=== PATIENT | female | born 1955 | race American Indian/Alaskan Native ===

== ENCOUNTER 2016-11-11 12:19 | Outpatient (CLI) | payer MEDICAID ==
--- NOTE | 2016-11-11 13:36 | Mammography Report ---
Bilateral mammogram: No previous studies available. CAD study utilized. Findings: Predominance of adipose tissue bilaterally. No mass or microcalcification. Normal axilla. Impression: Benign findings. Annual followup recommended.
== END 2016-11-11 12:20 | disposition home or self-care (01) ==
LOC: MAMMO 12:19
PROVIDERS: ATTEND Obstetrics & Gynecology
DX: Z12.31 Encounter for screening mammogram for malignant neoplasm of breast (principal); I11.0 Hypertensive heart disease with heart failure; I50.9 Heart failure, unspecified; I25.10 Atherosclerotic heart disease of native coronary artery without angina pectoris; J44.9 Chronic obstructive pulmonary disease, unspecified; J45.909 Unspecified asthma, uncomplicated; E11.9 Type 2 diabetes mellitus without complications
CPT/HCPCS: 77067; G0202

== ENCOUNTER 2017-04-09 04:28 | Emergency (ER) | payer MEDICAID ==
--- NOTE | 2017-04-09 06:12 | Cat Scan Report ---
FINAL REPORT PROCEDURE: CT HEAD/BRAIN WO CON TECHNIQUE: Computerized tomography of the head was performed without contrast material. HISTORY: fall COMPARISON: No prior studies are available for comparison. FINDINGS: Skull and scalp: Normal. Paranasal sinuses: Normal. Ventricles and subarachnoid spaces: Normal. Cerebrum: No evidence of hemorrhage, acute infarction or mass . Cerebellum and brainstem: No evidence of hemorrhage, acute infarction or mass. Vasculature: Normal. Comments: None. IMPRESSION: There is no skull fracture. There is no intracranial hemorrhage.
--- NOTE | 2017-04-09 07:53 | Cat Scan Report ---
FINAL REPORT PROCEDURE: CT CERVICAL SPINE WO CON TECHNIQUE: Computerized tomography of the cervical spine was performed from the skull base to T1 without contrast material. HISTORY: haedache s/p fall COMPARISON: No prior studies are available for comparison. FINDINGS: The skull base and foramen magnum are intact. The cervical vertebrae are intact. C1-2: No significant abnormality. C2-3: No significant abnormality. C3-4: No significant abnormality. C4-5: No significant abnormality. C5-6: No significant abnormality. C6-7: No significant abnormality. C7-T1: No significant abnormality. Other: There are no fractures or malalignments. The prevertebral soft tissues are normal in thickness. There is enlargement of the thyroid gland.. IMPRESSION: No significant abnormality.
--- NOTE | 2017-04-09 08:13 | Cat Scan Report ---
FINAL REPORT EXAM: CT FACIAL BONES WO CON HISTORY: haedache s/p fall TECHNIQUE: CT images are acquired through the face without contrast. Transaxial , coronal and sagittal reformations are provided. PRIORS: None. FINDINGS: No facial fractures. The bony orbits, nasal bones, pterygoid plates, mandible and maxilla are intact. Suggested right para midline lower lip swelling. Normal spherical shape of the globes. No significant abnormality within the imaged paranasal sinuses or mastoid air cells. IMPRESSION: No facial fracture.
[2017-04-09] MEDS ORDERED: ULTRAM PO ONE (08:16)
[2017-04-09] MEDS ORDERED: ULTRAM ONE (08:25)
--- NOTE | 2017-04-09 08:44 | Emergency Department Report ---
ED Fall HPI - General Chief Complaint: Fall Stated Complaint: FALL Time Seen by Provider: 04/09/17 07:13 Source: patient Mode of arrival: Ambulatory - History of Present Illness Initial Comments: This is a 61-year-old female nontoxic, well nourished in appearance, no acute signs of distress presents to the ED with c/o of headache and right-sided mandible pain status post fall that occurred today. Patient stated she was with a cane walking about the room and tripped and hit her face against the floor of the right side and her head against the tub. Patient denies any loss of consciousness. Denies any back pain, chest pain, shortness of breath, fever , chills, nausea, vomiting, numbness, tingling, abdominal pain. Patient denies any blurry vision. Denies thunderclap headache. Describes headache as diffuse but level of 8 out of 10. Patient states allergies to all penicillins. Past medical history includes CVA, COPD, asthma, diabetes, GERD, headaches, hypertension and [place]. MD Complaint: fall -: This morning Fall From: standing Fall Witnessed: no Place Fall Occurred: home Loss of Consciousness: none Prolonged Down Time?: no Symptoms Prior to Fall: none Location: head, face Severity: mild Severity scale (0 -10): 8 Quality: aching Context: tripped/slipped Associated Symptoms: headache. denies: neck pain, numbness, weakness, chest paint, shortness of breath, abdominal pain, hematuria, unable to walk, lightheaded, vertigo, confusion - Related Data Home Medications Medication Instructions Recorded Confirmed Last Taken diphenhydrAMINE [Benadryl CAP] 50 mg PO Q8HR PRN 10/14/13 04/09/17 12/11/14 Atorvastatin [Lipitor] 40 mg PO QHS 06/23/14 04/09/17 1 Day Ago ~04/08/17 Gabapentin 300 mg PO TID 06/23/14 04/09/17 1 Day Ago ~04/08/17 Hydrochlorothiazide 25 mg PO DAILY 06/23/14 04/09/17 1 Day Ago ~04/08/17 Metoprolol [Lopressor TAB] 25 mg PO DAILY 06/23/14 04/09/17 1 Day Ago ~04/08/17 amLODIPine [Norvasc] 10 mg PO DAILY 06/23/14 04/09/17 1 Day Ago ~04/08/17 Keppra TAB 1,500 mg PO BID 12/08/14 04/09/17 1 Day Ago ~04/08/17 Furosemide [Lasix] 20 mg PO DAILY 04/09/17 04/09/17 1 Day Ago ~04/08/17 Hydroxyzine HCl [hydrOXYzine] 50 mg PO DAILY 04/09/17 04/09/17 1 Day Ago ~04/08/17 Lacosamide [Vimpat] 200 mg PO BID 04/09/17 04/09/17 1 Day Ago ~04/08/17 Previous Rx's Medication Instructions Recorded Last Taken Type ALBUTEROL Inhaler [ProAir HFA 2 puff IH QID PRN #20 inha 07/21/13 12/11/14 Rx Inhaler] Ferrous Sulfate [Feosol 325 MG tab] 325 mg PO BID #60 tablet 07/21/13 12/11/14 Rx Aspirin [Aspirin BABY CHEW TAB] 81 mg PO QDAY #30 tab.chew 06/23/14 1 Day Ago Rx ~04/08/17 Cyclobenzaprine [Flexeril 10 MG 10 mg PO TID PRN #30 tablet 06/23/14 12/11/14 Rx TAB] Nitroglycerin [Nitrostat] 0.4 mg SL Q5M PRN #14 tab 06/23/14 10/24/14 Rx Omeprazole [PriLOSEC] 20 mg PO BID #20 capsule. 12/12/14 1 Day Ago Rx ~04/08/17 Butalb/Acetamin/Caff 50-325-40 1 tab PO Q6HR PRN #10 tab 04/09/17 Unknown Rx [Fioricet] Allergies Allergy/AdvReac Type Severity Reaction Status Date / Time Penicillins Allergy Hives Verified 12/08/14 16:06 "cillins Allergy Hives Uncoded 07/19/13 17:49 ED Review of Systems ROS: Stated complaint: FALL Other details as noted in HPI Constitutional: denies: chills, fever Eyes: denies: eye pain, eye discharge, vision change ENT: denies: ear pain, throat pain Respiratory: denies: cough, shortness of breath, wheezing Cardiovascular: denies: chest pain, palpitations Endocrine: no symptoms reported Gastrointestinal: denies: abdominal pain, nausea, diarrhea Genitourinary: denies: urgency, dysuria, discharge Musculoskeletal: denies: back pain, joint swelling, arthralgia Skin: denies: rash, lesions Neurological: headache. denies: weakness, paresthesias Psychiatric: denies: anxiety, depression Hematological/Lymphatic: denies: easy bleeding, easy bruising ED Past Medical Hx - Past Medical History Previous Medical History?: Yes Hx Hypertension: Yes Hx CVA: Yes Hx Heart Attack/AMI: Yes (2008) Hx Congestive Heart Failure: No Hx Diabetes: Yes (NO LONGER TAKES MEDS) Hx GERD: Yes Hx Headaches / Migraines: Yes Hx Seizures: Yes (SINCE CHILDHOOD LAST SZ WAS 2 WEEKS AGO) Hx Asthma: Yes Hx COPD: Yes Hx HIV: No Additional medical history: back pain, CAD, Headache,STOMACH ULCER - Surgical History Past Surgical History?: Yes Additional Surgical History: Hysterectomy, gastric cancer Tumor removed from stomach, fallopian tube surgery, cyst on neck - Social History Smoking Status: Never Smoker Substance Use Type: None - Medications Home Medications: Home Medications Medication Instructions Recorded Confirmed Last Taken Type ALBUTEROL Inhaler [ProAir HFA 2 puff IH QID PRN #20 inha 07/21/13 04/09/1712/11 Rx Inhaler] Ferrous Sulfate [Feosol 325 MG tab] 325 mg PO BID #60 tablet 07/21/13 04/09/17 12/11/14 Rx diphenhydrAMINE [Benadryl CAP] 50 mg PO Q8HR PRN 10/14/13 04/09/17 12/11/14 History Aspirin [Aspirin BABY CHEW TAB] 81 mg PO QDAY #30 tab.chew 06/23/14 04/09/17 1 Day Ago Rx ~04/08/17 Atorvastatin [Lipitor] 40 mg PO QHS 06/23/14 04/09/17 1 Day Ago History ~04/08/17 Cyclobenzaprine [Flexeril 10 MG 10 mg PO TID PRN #30 tablet 06/23/14 04/09/17 Rx TAB] Gabapentin 300 mg PO TID 06/23/14 04/09/17 1 Day Ago History ~04/08/17 Hydrochlorothiazide 25 mg PO DAILY 06/23/14 04/09/17 1 Day Ago History ~04/08/17 Metoprolol [Lopressor TAB] 25 mg PO DAILY 06/23/14 04/09/17 1 Day Ago History ~04/08/17 Nitroglycerin [Nitrostat] 0.4 mg SL Q5M PRN #14 tab 06/23/14 04/09/17 10/24/14 Rx amLODIPine [Norvasc] 10 mg PO DAILY 06/23/14 04/09/17 1 Day Ago History ~04/08/17 Keppra TAB 1,500 mg PO BID 12/08/14 04/09/17 1 Day Ago History ~04/08/17 Omeprazole [PriLOSEC] 20 mg PO BID #20 capsule.dr 12/12/14 04/09/17 1 Day Ago Rx ~04/08/17 Butalb/Acetamin/Caff 50-325-40 1 tab PO Q6HR PRN #10 tab 04/09/17 Unknown Rx [Fioricet] Furosemide [Lasix] 20 mg PO DAILY 04/09/17 04/09/17 1 Day Ago History ~04/08/17 Hydroxyzine HCl [hydrOXYzine] 50 mg PO DAILY 04/09/17 04/09/17 1 Day Ago History ~04/08/17 Lacosamide [Vimpat] 200 mg PO BID 04/09/17 04/09/17 1 Day Ago History ~04/08/17 ED Physical Exam - General Limitations: No Limitations General appearance: alert, in no apparent distress - Head Head exam: Present: atraumatic, normocephalic, normal inspection - Expanded Head Exam Expanded Head exam: Present: other (right cheek bone slight redness. No trismus. ). Absent: laceration, abrasion, hematoma 1 - redness - Eye Eye exam: Present: normal appearance, PERRL, EOMI. Absent: scleral icterus, conjunctival injection, nystagmus, periorbital swelling, periorbital tenderness Pupils: Present: normal accommodation - ENT ENT exam: Present: normal exam, normal orophraynx, mucous membranes moist, TM's normal bilaterally, normal external ear exam - Neck Neck exam: Present: normal inspection, full ROM. Absent: tenderness, meningismus, lymphadenopathy, thyromegaly - Respiratory Respiratory exam: Present: normal lung sounds bilaterally. Absent: respiratory distress, wheezes, rales, rhonchi, stridor, chest wall tenderness, accessory muscle use, decreased breath sounds, prolonged expiratory - Cardiovascular Cardiovascular Exam: Present: regular rate, normal rhythm, normal heart sounds. Absent: irregular rhythm, systolic murmur, diastolic murmur, rubs, gallop - GI/Abdominal GI/Abdominal exam: Present: soft, normal bowel sounds. Absent: distended, tenderness, guarding, rebound, rigid, diminished bowel sounds - Rectal Rectal exam: Present: deferred - Extremities Exam Extremities exam: Present: normal inspection, full ROM, normal capillary refill. Absent: tenderness, pedal edema, joint swelling, calf tenderness - Back Exam Back exam: Present: normal inspection, full ROM. Absent: tenderness, CVA tenderness (R), CVA tenderness (L), muscle spasm, paraspinal tenderness, vertebral tenderness, rash noted - Expanded Back Exam Expanded Back exam: Absent: saddle anesthesia Back exam: Negative Straight Leg Raising: Left, Right - Neurological Exam Neurological exam: Present: alert, oriented X3, CN II-XII intact, normal gait, reflexes normal - Expanded Neurological Exam Expanded Patient oriented to: Present: person, place, time Cranial nerves: EOM's Intact: Normal, Gag Reflex: Normal, Tongue Deviation: Normal, Nystagmus: Normal, Facial Sensation: Normal, Facial Palsy with Forehead Movement: Normal, Facial Palsy without Forehead Movement: Normal Cerebellar function: Finger to Nose: Normal, Heel to Senior: Normal, Romberg: Normal Upper motor neuron: Yaw Neglect: Normal, Pronator Drift: Normal, Babinski Sign : Normal, Sensory Extinction: Normal Sensory exam: Upper Extremity Light Touch: Normal, Upper Extremity Pin Prick: Normal, Upper Extremity Temperature: Normal, UE 2 Point Discrimination: Normal, Lower Extremity Light Touch: Normal, Lower Extremity Pin Prick: Normal, Lower Extremity Temperature: Normal, LE 2 Point Discrimination: Normal Motor strength exam: RUE: 3, LUE: 3, RLE: 3, LLE: 3 DTR: bicep (R): 2+, bicep (L): 2+, tricep (R): 2+, tricep (L): 2+, knee (R): 2+ , knee (L): 2+, ankle (R): 2+, ankle (L): 2+ Best Eye Response ([place]): (4) open spontaneously Best Motor Response ([place]): (6) obeys commands Best Verbal Response ([place]): (5) oriented Mallorie Total: 15 - Psychiatric Psychiatric exam: Present: normal affect, normal mood - Skin Skin exam: Present: warm, dry, intact, normal color. Absent: rash ED Course Vital Signs 04/09/17 04/09/17 05:05 08:26 Temperature 97.4 F L Pulse Rate 88 Respiratory 17 18 Rate Blood Pressure 106/56 O2 Sat by Pulse 99 Oximetry - Reevaluation(s) Reevaluation #1: 04/09/17 08:46 Patient is speaking in full sentences with no signs of distress noted. ED Medical Decision Making - Medical Decision Making This is a 61-year-old female Headache and contusion. Patient is stable and was examined by me. CT of head/brain, cervical spine, and facial bones has been obtained and dictated by radiologist within normal limits. Patient is notified of CT results with no gross noted by the patient. Patient is neurologically stable. Patient received Ultram in the ED which paced that his symptoms of headache is subsiding and is improving. Patient's daughter states she will try the patient home after discharge due to drowsiness of Ultram. Patient was instructed Follow-up with a primary care doctor in 3-5 days or if symptoms worsen and continue return to emergency room as soon as possible. At time time of discharge, the patient does not seem toxic or ill in appearance. No acute signs of distress noted. Patient agrees to discharge treatment plan of care. No further questions noted by the patient. Critical care attestation.: If time is entered above; I have spent that time in minutes in the direct care of this critically ill patient, excluding procedure time. ED Disposition Clinical Impression: Headache Qualifiers: Headache type: unspecified Headache chronicity pattern: acute headache Intractability: not intractable Qualified Code(s): R51 - Headache Fall Qualifiers: Encounter type: initial encounter Qualified Code(s): W19.XXXA - Unspecified fall, initial encounter Contusion Qualifiers: Encounter type: initial encounter Contusion area: head Contusion of head detail : unspecified part of head Qualified Code(s): S00.93XA - Contusion of unspecified part of head, initial encounter Disposition: DC-01 TO HOME OR SELFCARE Is pt being admited?: No Does the pt Need Aspirin: No Condition: Stable Instructions: Acute Headache (ED), Butalbital/Aspirin/Caffeine (By mouth), Fall Prevention for Older Adults (ED) Additional Instructions: Follow-up with a primary care doctor in 3-5 days or if symptoms worsen and continue return to emergency room as soon as possible. Prescriptions: Butalb/Acetamin/Caff 50-325-40 [Fioricet] 1 tab PO Q6HR PRN #10 tab PRN Reason: Headache Referrals: KENZIE QUEVEDO MD [Primary Care Provider] - 3-5 Days SELINA KEVIN MD [Staff Physician] - 3-5 Days [facility] [Outside] - 3-5 Days [facility] [Outside] - 3-5 Days Forms: Work/School Release Form(ED)
[2017-04-09 09:11] VITALS: BP 104/74
== END 2017-04-09 09:11 | disposition home or self-care (01) ==
LOC: ED 04:28
DX: S00.83XA Contusion of other part of head, initial encounter (principal); I10 Essential (primary) hypertension; I25.2 Old myocardial infarction; E11.9 Type 2 diabetes mellitus without complications; K21.9 Gastro-esophageal reflux disease without esophagitis; J44.9 Chronic obstructive pulmonary disease, unspecified; G43.909 Migraine, unspecified, not intractable, without status migrainosus; Z86.73 Personal history of transient ischemic attack (TIA), and cerebral infarction without residual deficits; Z88.0 Allergy status to penicillin; W01.198A Fall on same level from slipping, tripping and stumbling with subsequent striking against other object, initial encounter; Y93.89 Activity, other specified; Y92.89 Other specified places as the place of occurrence of the external cause; Y99.8 Other external cause status
CPT/HCPCS: 70450; 70486; 72125; 99283

== ENCOUNTER 2017-10-11 06:23 | Day surgery (SDC) | payer MEDICAID ==
[2017-10-11] MEDS ORDERED: ECOTRIN PO NR (06:57)
[2017-10-11] MEDS ORDERED: NACL 0.9% 500 ML 500 ML IV SCH (07:00)
[2017-10-11] MEDS ORDERED: HEPARIN/NS 5000 UNIT/500ML(CATH LAB) 1,000 ML IR ONE (09:15)
[2017-10-11] MEDS ORDERED: HEPARIN 10,000 UNITS/10 ML ONE (09:15)
[2017-10-11] MEDS ORDERED: VERSED ONE (09:16)
[2017-10-11] MEDS ORDERED: XYLOCAINE 2% INFILTRATI ONE (09:16)
[2017-10-11] MEDS ORDERED: SUBLIMAZE ONE (09:16)
[2017-10-11] MEDS ORDERED: NITROGLYCERIN SYRINGE 3 ML ONE (09:16)
[2017-10-11] MEDS ORDERED: CALAN ONE (09:16)
--- NOTE | 2017-10-11 10:29 | Cardiac Catherization Report ---
INDICATION FOR PROCEDURE: The patient is a pleasant 62-year-old -[place] female with multiple risk factors, chest pain, abnormal stress test, referred for cardiac catheterization. Risks, benefits, and potential alternatives explained at length prior to obtaining informed consent. PROCEDURE IN DETAIL: The patient was brought to the computer lab assistant in a postabsorptive state, prepped and draped in a sterile fashion. Madan's test in right hand was normal. A 2 mL of 2% lidocaine used to anesthetize the right wrist. A standard 6-Green[place]ic hydrophilic sheath used to cannulate the right radial artery via modified Seldinger technique. All exchanges performed to exchange a J-tip guidewire. JL3.5 catheter used to engage the left main. No dampening or ventricularization. Cineangiography performed in all projections. JR4 catheter was used to cross the aortic valve under fluoroscopic guidance. Left ventriculography performed 30 ENNIS and 30 MALTESE projections via hand injections, catheter flushed. Manual pullback performed with continuous blood pressure monitoring. Catheter used to engage the right coronary. No dampening or ventricularization. Cineangiography performed in all projections. Next, catheter removed from the body of wire, sheath removed. Manual pressure used to achieve hemostasis. I directly supervised the administration of moderate sedation from 9:55 a.m. to 10:10 a.m. There were no immediate complications identified. DATA: Aortic pressure is 110/50, LV pressure is 110, LVEDP of 15 mmHg. Left ventriculography reveals normal left ventricular systolic performance systolic performance with estimated ejection fraction of 55-60%. No evidence of aortic stenosis. CORONARY ANATOMY: Codominant system. Right coronary is a moderate size vessel, courses AV groove, distally bifurcates in the posterior descending and posterolateral branch, no discrete stenosis identified. Left main is a normal vessel with no significant disease, bifurcates left anterior descending and left circumflex. There is mild ectasia in the proximal left circumflex and proximal LAD, left circumflex, moderate vessel courses AV groove. There is a left PDA, left circumflex. No obstructive disease identified. LAD is a moderate sized vessel, courses anterior intergroove, wraps around the apex. No obstructive disease identified. CONCLUSIONS: 1. No angiographic evidence of significant epicardial coronary disease in this codominant system. 2. Mild proximal LAD and proximal left circumflex. Ectasia is noted. 3. Normal left ventricular systolic performance with estimated ejection fraction of 55-60%. 4. No evidence of aortic stenosis. 5. Normal LVEDP. Continue aggressive primary and secondary risk factor modification. The patient is clinically stable and doing well. Follow up with me in the office. No immediate complication. Standard radial care. Results of procedure were explained to the patient and her daughter. All questions addressed. [facility]# [id number] ALIYA/NTS
[2017-10-11 12:49] VITALS: BP 102/64
--- NOTE | 2017-10-11 16:07 | Short Stay Summary ---
Short Stay Documentation Date of service: 10/11/17 - History H&P: obtained from office - Allergies and Medications Current Medications: Allergies metronidazole [From Flagyl] Allergy (Verified 10/11/17 06:56) Hives Penicillins Allergy (Verified 12/08/14 16:06) Hives "cillins Allergy (Uncoded 07/19/13 17:49) Hives Home Medications Medication Instructions Recorded Confirmed Last Taken Type ALBUTEROL Inhaler [ProAir HFA 2 puff IH QID PRN #20 inha 07/21/13 10/11/1710/08 Rx Inhaler] diphenhydrAMINE [Benadryl CAP] 50 mg PO Q8HR PRN 10/14/13 10/11/17 1 Week Ago History ~10/04/17 Atorvastatin [Lipitor] 40 mg PO QHS 06/23/14 10/11/17 10/10/17 History Cyclobenzaprine [Flexeril 10 MG 10 mg PO TID PRN #30 tablet 06/23/14 10/11/17 1 Month Ago Rx TAB] ~09/11/17 Gabapentin 300 mg PO TID 06/23/14 10/11/17 10/10/17 History amLODIPine [Norvasc] 10 mg PO DAILY 06/23/14 10/11/17 1 Month Ago History ~09/11/17 Lacosamide [Vimpat] 200 mg PO BID 04/09/17 10/11/17 10/10/17 History Lisinopril [Zestril] 40 mg PO QDAY 10/11/17 10/11/17 10/10/17 History levETIRAcetam [Keppra TAB] 1,500 mg PO BID 10/11/17 10/11/17 10/10/17 History - Brief post op/procedure progress note Date of procedure: 10/11/17 Pre-op diagnosis: chest pain, abnormal stress test Post-op diagnosis: same Procedure: LHC - see dictated cath report Anesthesia: local Estimated blood loss: none Condition: stable - Disposition Condition at discharge: Stable Disposition: DC-01 TO HOME OR SELFCARE - Discharge Diagnoses (1) Abnormal stress test Status: Chronic (2) Chest pain Status: Chronic (3) Diabetes mellitus Status: Chronic (4) HTN (hypertension), benign Status: Chronic Short Stay Discharge Plan Activity: advance as tolerated Diet: low cholesterol, low salt, diabetic Wound: open to air, keep clean and dry, per your surgeon's advice Follow up with: KENZIE QUEVEDO MD [Primary Care Provider] - 7 Days Forms: CardCath PCI D/C Instructions
== END 2017-10-11 13:45 | disposition home or self-care (01) ==
LOC: CATHLABREC 06:23
PROVIDERS: ATTEND Internal Medicine
DX: I25.10 Atherosclerotic heart disease of native coronary artery without angina pectoris (principal); I10 Essential (primary) hypertension; I25.2 Old myocardial infarction; E11.9 Type 2 diabetes mellitus without complications; G40.909 Epilepsy, unspecified, not intractable, without status epilepticus; K21.9 Gastro-esophageal reflux disease without esophagitis; J45.909 Unspecified asthma, uncomplicated; Z79.82 Long term (current) use of aspirin; Z88.0 Allergy status to penicillin; Z88.1 Allergy status to other antibiotic agents; Z90.710 Acquired absence of both cervix and uterus; Z86.73 Personal history of transient ischemic attack (TIA), and cerebral infarction without residual deficits; Z85.42 Personal history of malignant neoplasm of other parts of uterus; Z85.028 Personal history of other malignant neoplasm of stomach; Z85.43 Personal history of malignant neoplasm of ovary; Z98.890 Other specified postprocedural states
CPT/HCPCS: 93005; 93010; 93458; 99156; C1894; J1644; J2250; J3010; J7040; Q9967

== ENCOUNTER 2019-03-21 12:24 | Emergency (ER) | payer MEDICAID ==
--- NOTE | 2019-03-21 15:02 | Event Note ---
ED Screening Note ED Screening Note: hx of kidney stones states she is having hematuria states that she believes "a kidney stone is stuck in the urethra" PMHx stomach CA, seizures allergy: PCN, morphine, flagyl This initial assessment/diagnostic orders/clinical plan/treatment(s) is/are subject to change based on patients health status, clinical progression and re- assessment by fellow clinical providers in the ED. Further treatment and workup at subsequent clinical providers discretion. Patient/guardian urged not to elope from the ED as their condition may be serious if not clinically assessed and managed. Initial orders include: labs, UA, CT abd pelvis without contrast
[2019-03-21 15:04] VITALS: BP 137/87
[2019-03-21 15:45] LABS: Bilirubin,Urine NEG (Negative); Blood,Urine NEG (Negative); Color,Urine Yellow (Yellow); Protein,Urine <15 mg/dL mg/dL (Negative); Urobilinogen,Urine < 2.0 mg/dL (<2.0); WBC,Urine < 1.0 /HPF (0.0-6.0)
--- NOTE | 2019-03-21 16:48 | Cat Scan Report ---
CT abdomen pelvis wo con INDICATION: hx of nephrolithiasis, hematuria, pain. TECHNIQUE: All CT scans at this location are performed using the following dose modulation technique: Automated exposure control. Helical slices were obtained through the abdomen and pelvis. No contrast is adminis tered. COMPARISON: CT scan dated 11/27/2014 FINDINGS: Abdomen: No acute abnormality is seen in the lower chest. Liver, spleen, pancreas, adrenal glands, an d small bowel show no acute abnormality. The appendix is unremarkable. There is a 2.5 cm cyst in the mid right kidney. There is nephrolithiasis on the right. There is no hy dronephrosis. There are no ureteral calculi. There is a cyst in the lower pole the left kidney with s mall amount of mural calcification. There are scattered diverticula throughout the colon. There is a small fat-containing ventral hernia above the umbilicus. Pelvis: The urinary bladder is grossly unremarkable. There are phleboliths. There is sigmoid divertic ulosis. There is no CT evidence of diverticulitis. On review of bone windows, no acute osseous abnormalities are seen. IMPRESSION: 1. There is nephrolithiasis on the right. There are no ureteral calculi. There is no hydronephrosis. Hypodensities in the kidneys are characteristic of cysts. 2. There is a small fat-containing ventral hernia Signer Name: Laurent Lala MD Signed: 03/21/2019 4:44 PM Workstation Name: [id number]
== END 2019-03-22 02:29 ==
LOC: ED 12:24
DX: N89.8 Other specified noninflammatory disorders of vagina (principal); Z53.21 Procedure and treatment not carried out due to patient leaving prior to being seen by health care provider
CPT/HCPCS: 74176; 81001